=== PATIENT | male | born 1965 | race African-American/Black ===

== ENCOUNTER 2023-04-18 11:59 | Outpatient (CLI) | payer OTHER ==
[2023-04-18 14:51] LABS: #Basophils 0.1 10x3/uL (0.0-0.2); #Eosinphils 0.4 10x3/uL (0.0-0.5); #Monocytes 0.6 10x3/uL (0.0-1.1); #Neutrophils 6.3 10x3/uL (1.5-8.4); %Basophils 0.8 % (0.0-2.0); %Eosinophils 4.2 % (0.0-6.0); %Monocytes 7.1 % (0.0-10.0); %Neutrophils 71.6 % (40.0-75.0); Hematocrit 32.8 % (38.8-50.0); Hemoglobin 10.1 g/dL (13.5-17.5); Mean Corpuscular HGB CONC 30.8 g/dL (32.0-36.0); Mean Corpuscular Hemoglobin 23.8 pg (27.0-33.0); Mean Corpuscular Volume 77.2 fl (81.2-95.1); Platelet Count 529 10x3/uL (150-450); Red Blood Cell (RBC) Count 4.25 10x6/uL (4.32-5.72); White Blood Cell (WBC) Count 8.8 10x3/uL (3.5-10.5)
[2023-04-18 15:02] LABS: Anion Gap 12 mmol/L (10-20); BUN (Urea Nitrogen) 17 mg/dL (8.4-25.7); Calc. Creatinine Clearance 0 mL/min (70-130); Calcium 8.8 mg/dL (7.8-10.44); Carbon Dioxide 29 mmol/L (22-29); Chloride 105 mmol/L (98-107); Estimated GFR 108; Glucose 103 mg/dL (70-105); Potassium 4.1 mmol/L (3.5-5.1); Sodium 142 mmol/L (136-145)
== END 2023-04-18 12:00 | disposition home or self-care (01) ==
LOC: CSHLAB 11:59
PROVIDERS: ATTEND Surgery
DX: Z01.818 Encounter for other preprocedural examination (principal); C34.00 Malignant neoplasm of unspecified main bronchus
CPT/HCPCS: 93005; 93010

== ENCOUNTER 2023-04-19 07:34 | Day surgery (SDC) | payer OTHER ==
[2023-04-18 12:25] VITALS: BMI 19.1
[2023-04-19] MEDS ORDERED: Bupivacaine PF 0.5% 30 ML VIAL ONE (09:54)
[2023-04-19] MEDS ORDERED: EPINEPHrine 1 MG/ML VIAL ONE (09:54)
[2023-04-19] MEDS ORDERED: PROPOFOL 40 ML ONE (09:56)
[2023-04-19] MEDS ORDERED: fentaNYL 50 mcg/mL 1 mL Vial ONE (09:56)
[2023-04-19] MEDS ORDERED: Ipratropium/Albuterol 3 ML NEB ONE (09:58)
[2023-04-19] MEDS ORDERED: CEFAZOLIN 2 GM VIAL ONE (10:07)
[2023-04-19] MEDS ORDERED: PROPOFOL 20 ML ONE (10:27)
[2023-04-19] MEDS ORDERED: HYDROcodone/Acetaminophen 5/325 mg Tablet PO PRN (10:40)
[2023-04-19] MEDS ORDERED: Acetaminophen 325 MG TAB PO PRN (10:40)
== END 2023-04-19 11:29 | disposition home or self-care (01) ==
LOC: CSHSDC 07:34
PROVIDERS: ATTEND Surgery
PROC: 0JH60WZ Insertion of Totally Implantable Vascular Access Device into Chest Subcutaneous Tissue and Fascia, Open Approach (ICD-10-PCS; principal; 2023-04-19)
DX: C34.91 Malignant neoplasm of unspecified part of right bronchus or lung (principal); I10 Essential (primary) hypertension; F17.200 Nicotine dependence, unspecified, uncomplicated; Z79.899 Other long term (current) drug therapy
CPT/HCPCS: 71045; 94640; C1788; J0171; J1642; J2704; J3010; J7620; S0020

== ENCOUNTER 2023-04-29 09:18 | Emergency (ER) | payer OTHER ==
[2023-04-29] MEDS ORDERED: Ipratropium/Albuterol 3 ML NEB ONE ×2 (09:55→11:20)
[2023-04-29 10:15] LABS: Hematocrit 27.9 % (38.8-50.0); Hemoglobin 9.4 g/dL (13.5-17.5); Mean Corpuscular HGB CONC 33.7 g/dL (32.0-36.0); Mean Corpuscular Hemoglobin 24.1 pg (27.0-33.0); Mean Corpuscular Volume 71.5 fl (81.2-95.1); Mean Platelet Volume 9.4 fl (7.4-10.4); Platelet Count 184 10x3/uL (150-450); RBC Distribution Width 13.8 % (11.5-14.5); White Blood Cell (WBC) Count 5.2 10x3/uL (3.5-10.5)
[2023-04-29] MEDS ORDERED: Iopamidol 370 76% 100 ML VIAL ONE (10:21)
[2023-04-29 10:27] LABS: INR-International Normal Ratio 1.1; PTT 34.7 sec (22.0-33.0); Prothrombin Time 11.7 sec (9.5-12.1)
[2023-04-29 10:34] LABS: MDiff Complete? YES
[2023-04-29 10:37] LABS: Troponin I 0.013 ng/mL (< 0.028)
[2023-04-29 10:53] LABS: ALT (SGPT) 18 U/L (8-55); AST (SGOT) 25 U/L (5-34); Albumin 2.8 g/dL (3.5-5.0); Alkaline Phosphatase 70 U/L (40-110); Anion Gap 14 mmol/L (10-20); Anisocytosis SLIGHT = 6-15 cells (100X) (0-5/hpf); BUN (Urea Nitrogen) 28 mg/dL (8.4-25.7); Bilirubin, Total 0.6 mg/dL (0.2-1.2); Bite Cells SLIGHT = 2-5 cells (100X) (0-1/hpf); Calc. Creatinine Clearance 0 mL/min (70-130); Calcium 7.7 mg/dL (7.8-10.44); Carbon Dioxide 28 mmol/L (22-29); Chloride 96 mmol/L (98-107); Estimated GFR 107; Globulin 2.7 g/dL (2.4-3.5); Glucose 95 mg/dL (70-105); Hypochromia SLIGHT = 6-15 cells (100X) (0-5/hpf); Lipase 17 U/L (8-78); Lymphocytes 14 % (21-51); Magnesium 2.3 mg/dL (1.6-2.6); Microcytosis SLIGHT = 6-15 cells (100X) (0-5/hpf); Monocytes 7 % (0-10); Neutrophil 79 % (42-75); Ovalocytes SLIGHT = 2-5 cells (100X) (0-1/hpf); Poikilocytosis SLIGHT = 6-15 cells (100X) (0-5/hpf); Potassium 3.9 mmol/L (3.5-5.1); Protein, Total 5.5 g/dL (6.0-8.3); Schistocytes SLIGHT = 2-5 cells (100X) (0-1/hpf); Sodium 134 mmol/L (136-145); Target Cells SLIGHT = 2-5 cells (100X) (0-1/hpf)
[2023-04-29 10:54] LABS: Platelet Adequacy Comment Appears Adequate
[2023-04-29 11:05] LABS: Reflex for Review?? YES
[2023-04-29 11:08] LABS: Hypersegmented Neutrophil SLIGHT
[2023-04-29 12:32] LABS: SARS-CoV-2 NAA Rapid Test Not Detected (NotDetected)
[2023-04-29] MEDS ORDERED: Furosemide 40 MG/4 ML VIAL ONE (15:14)
[2023-04-29] MEDS ORDERED: Cefepime 2 GM VIAL ONE (15:14)
[2023-04-29] MEDS ORDERED: Vancomycin 1 GM VIAL ONE (15:14)
[2023-04-29 15:22] LABS: Bilirubin Neg (Negative); Blood, Urine Negative (Negative); Clarity Clear (Clear); Glucose, Urine (Dipstick) Normal (Negative); Ketone, Urine Negative (Negative); Leukocyte Negative (Negative); Nitrite Negative (Negative); Protein, Urine (Dipstick) 30 mg/dl (Neg-Trace); Specific Gravity, Urine 1.015 (1.005-1.030)
[2023-04-29 15:46] LABS: CAUTI Indications for Culture Pelvic or flank pain; RBC/HPF 0-3 HPF (0-3)
[2023-04-29 15:47] LABS: Squamous Epithelial 0-3 HPF (0-3)
[2023-04-29 15:48] LABS: Bacteria/HPF 2+ HPF (None Seen); Mucous/LPF 1+ LPF (<2+)
[2023-04-29 15:49] LABS: Urine Culture Reflex No No
== END 2023-04-29 18:28 | disposition short-term general hospital (02) ==
LOC: CSHERS 09:18
DX: J90 Pleural effusion, not elsewhere classified (principal); R09.02 Hypoxemia; Z20.822 Contact with and (suspected) exposure to COVID-19; I10 Essential (primary) hypertension; F17.210 Nicotine dependence, cigarettes, uncomplicated
CPT/HCPCS: 36415; 71045; 71275; 80053; 81001; 83690; 83735; 83880; 84443; 84484; 85025; 85060; 85610; 85730; 87040; 87077; 87086; 87149; 87186; 93005; 94640; 96365; 96366; 96367; 96375; J0692; J1940; J3370; J7620; Q9967

== ENCOUNTER 2023-12-09 09:08 | Outpatient (CLI) | payer OTHER | END 2023-12-09 09:09 | disposition home or self-care (01) | LOC: CSHRAD 09:08 | PROVIDERS: ATTEND Radiology Radiation Oncology | DX: C79.31 Secondary malignant neoplasm of brain (principal); C34.90 Malignant neoplasm of unspecified part of unspecified bronchus or lung | CPT/HCPCS: 70553; A9579 ==